=== PATIENT | male | born 1945 | race Caucasian/White ===

== ENCOUNTER 2016-09-26 09:55 | Emergency (ER) | payer MEDICARE ==
[~2016-09-26] VITALS: Ht 175.3 cm; Wt 111.4 kg
[~2016-09-26 09:55] MED LIST: ATRV10T PO; CITA40TA PO; DILT360C29 PO; HYDR-4003 PO; HYDR25TA4 PO; INSU100V7 SUBQ; LISI-571 PO; METF10002 PO; METO-272 PO; PANT20T PO; TRAZ-118 PO; WARF7.5T PO
[2016-09-26 09:58] VITALS: BP 177/101; PULSE 76; RESP 20; O2SAT 96
--- NOTE | 2016-09-26 10:06 | ED.REPORT ---
HPI-Back Pain 40 and Over Date of Service Sep 26, 2016 ED Provider: Marty Yung DO The patient is a 71 year old male on Xarelto with a history of ruptured disk L5 - S1, hypertension, and diabetes presenting with lower spinal back pain for the last 2 days. He was lifting some material when he found that his back had flared up. 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 He states that the symptoms are similar to before although it is only radiating to his left lower extremities. Twisting can exacerbate the pain and heat gives some relief. Denies saddle anesthesia, loss of bowel control or abdominal pain. Nursing Notes Stated Complaint: BACK PAIN Chief Complaint: Back Pain or Injury Nursing Notes Reviewed: Yes Allergies: Coded Allergies: No Known Drug Allergies (Verified Allergy, Unknown, 09/26/16) Scheduled Atorvastatin (Lipitor) 10 Mg Tab 10 MG PO DAILY Citalopram Hydrobromide (Celexa) 40 Mg Tablet 40 MG PO DAILY Diltiazem HCl (Diltiazem 24Hr Cd) 360 Mg Cap.er.24h 180 MG PO DAILY Hydrochlorothiazide (Hydrochlorothiazide) 25 Mg Tablet 25 MG PO DAILY Insulin Glargine (Lantus U100 Insulin Vial) 100 Unit/Ml Vial 70 UNIT SUBQ HS Lisinopril (Lisinopril) 5 Mg Tablet 40 MG PO DAILY Metformin (Metformin) 1,000 Mg Tablet 1,000 MG PO BIDWM Metoprolol Succinate ER (Metoprolol Succinate ER) 50 Mg Tab.er.24h 25 MG PO BID Pantoprazole DR (Protonix) 20 Mg Tablet 40 MG PO DAILY Trazodone (Trazodone) 100 Mg Tablet 100 MG PO HS Warfarin Sodium (Coumadin) 7.5 Mg Tablet 5 MG PO DAILY Scheduled PRN Hydrocodone-Acetaminophen 5-325 mg (Hydrocodone-Acetaminophen 5-325 mg) 1 Each Tablet 1 EACH PO BID PRN PRN For Pain Hydrocodone-Acetaminophen 5-325 mg (Hydrocodone-Acetaminophen 5-325 mg) 1 Each Tablet 2 TABLET PO QID PRN PRN For Pain General Time Seen by MD: 10:05 Chief Complaint Back pain Hx Obtained From: Patient Arrived By: Walk-in Sudden in Onset?: No Onset Occurred: 2 days ago Symptom Duration: Since onset Caused by: Lifting Location: : Spinal lumbar area: Spinal sacral area Quality: Same as prior (Not as severe on the right) Radiation: : Left leg below knee Severity: Current: Moderate Severity: Maximum: Moderate Similar Sx Previous: Yes Past Medical History Past Medical History Colon polyps, hemorrhoids. Afib. Pneumonia Anxiety Reports: Hyperlipidemia Reports: Diverticulitis Past Surgical History Bilat knee Neck Reports: Cholecystectomy Smoking History Former Smoker Social History Alcohol Use: "Social" Drug Use: Denies drug use Ambulatory Status Independent Review of Systems Constitutional: Denies: Fever Cardiovascular: Denies: Chest pain GI: Denies: Abdominal pain, Nausea, Vomiting Male: Denies Dysuria, Denies Urinary frequency Musculoskeletal: Reports: Back pain, Extremity pain Neurologic: Denies: Bladder dysfunction, Bowel dysfunction Complete sys rev & neg: except as marked. Physical Exam Initial Vital Signs Vital Signs (First) Date Time Temp Pulse Resp B/P Pulse Ox O2 Delivery O2 Flow Rate FiO2 09/26/16 09:58 36.1 76 20 177/101 96 Room Air Initial VS: Reviewed, Vital signs abnormal Head / Eyes: Atraumatic, Normocephalic Extremities: Vascular intact, Neuro intact Skin: Warm, Dry Psychiatric: Mood/affect normal, Behavior normal, Normal thought content General/Constitutional: Awake, Alert, No acute distress, Well developed Respiratory / Chest: Atraumatic, Breath sounds NL, Breath sounds = bilat, No respiratory distress, No rales, No rhonchi, No wheezing, No retractions Cardiovascular: Heart rate NL, Heart sounds NL Heart Rate / Rhythm: Positive: Irregular rhythm Periph CV / BP Differential: Positive: Peripheral pulses 2+ (DP) Abdomen: Atraumatic, Soft, Non-tender Back: Atraumatic, Inspection NL, Non-tender Neurologic: Oriented X3, Speech NL, No motor deficits, No sensory deficits Gait Abnormality: Positive: Antalgic gait Intact and symmetrical motor and sensory function L1-S1 Re-Eval/Medical Decision Med Decision/Clinical Course This very much sounds like acute on chronic low back strain. There are some radicular symptoms, I do not suspect any vascular pathology like AAA or dissection, it is not consistent with these or central spinal cord compression like cauda equina. Given his anticoagulant use, I have opted not to use NSAIDs or steroids as this increases his risk of GI bleed. Will treat with hydrocodone. Return and follow-up precautions given. Source of Hx: Old records Re-Evaluation/Progress : Time of Eval: 10:45 Re-Evaluation/Progress Note: Patient is informed of diagnosis and plan for discharge. He understands and agrees with the plan. All questions have been answered at this time. Counseled Regarding: Diagnosis, Need for follow-up, When/why to return to ED Discharge & Departure Impression: Primary Impression: Lumbosacral strain Encounter type: initial encounter Qualified Code: S39.012A - Strain of muscle, fascia and tendon of lower back, initial encounter Disposition: Home Discharge Condition All VS Reviewed: Yes Condition: Improved Additional Instructions: Take Vicodin for pain, rest, stretch, use ice and heat. Follow-up with your primary care doctor in the morning for repeat evaluation and referral to physical therapy. You may ultimately need repeat steroid injections into your back, or a repeat MRI. Return to the ER if you develop persistent loss of motor or sensory function, severe uncontrolled pain, high fever, or any other concerns. Referrals: Bill Alves MD (PCP) Ty Attestation Portions of this note were transcribed by Daljit Jose. I, Dr. Yung personally performed the history, physical exam and medical decision-making; I reviewed and confirmed the accuracy of the information in the transcribed note. Signed by: Ty Valdez, 09/26 1141. copies to: Bill Alves MD, Timchalino Christian Sep 26, 2016 10:06 Daljit Still Sep 26, 2016 10:18 JAVIER JOSE Sep 26, 2016 11:00
[2016-09-26] MEDS ORDERED: HYDR-4003 PO (10:27)
[2016-09-26] MEDS ORDERED: HYDROcodone-APAP 5-325 mg Tablet PO ONE (10:30)
[2016-09-26 10:53] VITALS: BP 156/94; PULSE 77; RESP 18; O2SAT 96
== END 2016-09-26 10:54 | disposition home or self-care (01) ==
LOC: SED 09:55
DX: S39.012A Strain of muscle, fascia and tendon of lower back, initial encounter (principal); X50.0XXA Overexertion from strenuous movement or load, initial encounter; Y93.89 Activity, other specified; Y92.9 Unspecified place or not applicable; Y99.8 Other external cause status; E78.5 Hyperlipidemia, unspecified; I10 Essential (primary) hypertension; E11.9 Type 2 diabetes mellitus without complications; Z79.01 Long term (current) use of anticoagulants; Z79.4 Long term (current) use of insulin; Z79.84 Long term (current) use of oral hypoglycemic drugs